=== PATIENT | female | born 1990 | race American Indian/Alaskan Native ===

== ENCOUNTER 2017-09-09 11:49 | Emergency (ER) | payer MEDICAID, OTHER ==
[2017-09-09 12:02] VITALS: BMI 25.7
[2017-09-09 12:10] VITALS: BP 122/87; PULSE 88; RESP 16; TEMP 98.1; O2SAT 99
--- NOTE | 2017-09-09 12:30 | ED PDOC ---
Arrival/HPI - General Chief Complaint: Lower Extremity Problem/Injury Time Seen by Provider: 09/09/17 12:24 Historian: Patient - History of Present Illness Narrative History of Present Illness (Text): 09/09/17 12:30 27 y/o female, no significant pmh, nkda, c/o lt. foot 4th digit toe pain around the nail about 2 days ago with no fall or trauma. Aching pain, painful to touch around the nail, no fever or chills, no chest pain or shortness of breath , no other medical or psychological complaints. Past Medical History - Provider Review Nursing Documentation Reviewed: Yes - Infectious Disease Hx of Infectious Diseases: None - Tetanus Immunization Tetanus Immunization: Up to Date - Past Medical History Past Medical History: No Previous - Pulmonary Hx Respiratory Disorders: No - Renal Hx Renal Disorder: No - Psychiatric Hx Depression: No Hx Emotional Abuse: No Hx Physical Abuse: No Hx Substance Use: No - Surgical History Hx Section: Yes - Anesthesia Hx Anesthesia Reactions: No - Suicidal Assessment Feels Threatened In Home Enviroment: No Family/Social History - Physician Review Nursing Documentation Reviewed: Yes Family/Social History: Unknown Family HX Smoking Status: Never Smoked Hx Alcohol Use: Yes Hx Substance Use: No Hx Substance Use Treatment: No Allergies/Home Meds Allergies/Adverse Reactions: Allergies No Known Allergies Allergy (Verified 02/11/13 17:27) Review of Systems - Review of Systems Constitutional: absent: Fatigue, Fevers Eyes: absent: Vision Changes ENT: absent: Hearing Changes Respiratory: absent: SOB, Cough Cardiovascular: absent: Chest Pain Gastrointestinal: absent: Abdominal Pain, Nausea, Vomiting Musculoskeletal: absent: Arthralgias, Back Pain Skin: Rash. absent: Pruritis, Skin Lesions, Laceration, Abscess, Ulcer, Cellulitis Neurological: absent: Headache, Dizziness Psychiatric: absent: Anxiety, Depression, Suicidal Ideation Physical Exam Vital Signs Reviewed: Yes Vital Signs Temp Pulse Resp BP Pulse Ox 09/09/17 12:02 98.1 F 88 16 122/87 99 Temperature: Afebrile Blood Pressure: Normal Pulse: Regular Respiratory Rate: Normal Appearance: Positive for: Well-Appearing, Non-Toxic, Comfortable Pain Distress: Mild Mental Status: Positive for: Alert and Oriented X 3 - Systems Exam Head: Present: Atraumatic, Normocephalic Pupils: Present: PERRL Respiratory/Chest: Present: Clear to Auscultation, Good Air Exchange. No: Respiratory Distress, Accessory Muscle Use Cardiovascular: Present: Regular Rate and Rhythm, Normal S1, S2. No: Murmurs Abdomen: No: Tenderness, Distention, Peritoneal Signs Upper Extremity: Present: Normal Inspection. No: Cyanosis, Edema Lower Extremity: Present: Normal Inspection, Other (Lt. foot 4th digit toe visible appear to be mild redness but there is no fluctuant abscess and no obvious paronychia noted, FROM without limitation, no bony tenderness, sensation intact, motor 5/5, +DPPT pulses, capillary refill< 2 seconds, neurovascular intact, motor 5/5). No: Edema Neurological: Present: GCS=15, CN II-XII Intact, Speech Normal Skin: Present: Warm, Dry, Normal Color. No: Rashes Psychiatric: Present: Alert, Oriented x 3, Normal Insight, Normal Concentration Medical Decision Making ED Course and Treatment: 09/09/17 12:35 -Urine hcg -Clindamycin -Urine hcg is negative. 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 Disposition/Present on Arrival - Present on Arrival Any Indicators Present on Arrival: No History of DVT/PE: No History of Uncontrolled Diabetes: No Urinary Catheter: No History of Decub. 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 Prescriptions: Clindamycin [Cleocin] 300 mg PO TID #21 cap Ibuprofen [Motrin Tab] 600 mg PO TID PRN #21 tab PRN Reason: Other Referrals: Fab Fam DPM [Staff Provider] - Follow up with primary Forms: WORK NOTE
== END 2017-09-09 13:14 | disposition home or self-care (01) ==
LOC: ED 11:49
DX: L03.032 Cellulitis of left toe (principal)

== ENCOUNTER 2018-06-28 15:19 | Emergency (ER) | payer OTHER ==
[2018-06-28 15:20] VITALS: BMI 25.7
[2018-06-28 15:29] VITALS: BP 112/70; PULSE 72; RESP 18; TEMP 98.2; O2SAT 99
--- NOTE | 2018-06-28 15:33 | ED PDOC ---
Arrival/HPI - General Chief Complaint: Back Pain Time Seen by Provider: 06/28/18 15:28 - History of Present Illness Narrative History of Present Illness (Text): 06/28/18 15:33 28 y/o female, no significant pmh, nkda, c/o lt. sided neck pain and spasm x 3 days s/p sleeping on the pillow with the neck tilted. Aching pain, no pain medication taken at home, no fever or chills, no rash, no headache, no night sweat, no rash, no dizziness, no change in vision, no other medical or psychological complaints. Past Medical History - Provider Review Nursing Documentation Reviewed: Yes - Infectious Disease Hx of Infectious Diseases: None - Tetanus Immunization Tetanus Immunization: Up to Date - Past Medical History Past Medical History: No Previous - Pulmonary Hx Respiratory Disorders: No - Renal Hx Renal Disorder: No - Psychiatric Hx Depression: No Hx Emotional Abuse: No Hx Physical Abuse: No Hx Substance Use: No - Surgical History Hx Section: Yes - Anesthesia Hx Anesthesia Reactions: No - Suicidal Assessment Feels Threatened In Home Enviroment: No Family/Social History - Physician Review Nursing Documentation Reviewed: Yes Family/Social History: Unknown Family HX Smoking Status: Never Smoked Hx Alcohol Use: Yes Hx Substance Use: No Hx Substance Use Treatment: No Allergies/Home Meds Allergies/Adverse Reactions: Allergies No Known Allergies Allergy (Verified 02/11/13 17:27) Review of Systems - Review of Systems Constitutional: absent: Fatigue, Fevers Eyes: absent: Vision Changes ENT: absent: Hearing Changes Respiratory: absent: SOB, Cough Cardiovascular: absent: Chest Pain Gastrointestinal: absent: Abdominal Pain, Nausea, Vomiting Musculoskeletal: Myalgias. absent: Arthralgias Skin: absent: Rash, Pruritis Neurological: absent: Headache, Dizziness Psychiatric: absent: Anxiety, Depression, Suicidal Ideation Physical Exam Vital Signs Reviewed: Yes Vital Signs Temp Pulse Resp BP Pulse Ox 06/28/18 15:26 98.2 F 72 18 112/70 99 Temperature: Afebrile Blood Pressure: Normal Pulse: Regular Respiratory Rate: Normal Appearance: Positive for: Well-Appearing, Non-Toxic, Comfortable Pain Distress: Moderate Mental Status: Positive for: Alert and Oriented X 3 - Systems Exam Head: Present: Atraumatic, Normocephalic Pupils: Present: PERRL Extroacular Muscles: Present: EOMI Conjunctiva: Present: Normal Ears: Present: NORMAL TM, Normal Canal. No: Erythema Mouth: Present: Moist Mucous Membranes Nose (Internal): Present: Normal Inspection, No Active Bleeding Neck: Present: Normal Range of Motion, Paraspinal Tenderness (Lt. paraspinal and trapezius muscle region with mild spasm), Trachea Midline. No: Meningeal Signs, MIDLINE TENDERNESS, Lymphadenopathy Respiratory/Chest: Present: Clear to Auscultation, Good Air Exchange. No: Respiratory Distress, Accessory Muscle Use Cardiovascular: Present: Regular Rate and Rhythm, Normal S1, S2. No: Murmurs Abdomen: No: Tenderness, Distention, Peritoneal Signs Back: Present: Normal Inspection Upper Extremity: Present: Normal Inspection. No: Cyanosis, Edema Lower Extremity: Present: Normal Inspection. No: Edema Neurological: Present: GCS=15, CN II-XII Intact, Speech Normal Skin: Present: Warm, Dry, Normal Color. No: Rashes Psychiatric: Present: Alert, Oriented x 3, Normal Insight, Normal Concentration Medical Decision Making ED Course and Treatment: 06/28/18 15:29 -Urine hcg is negative. -Pt. refused medication here and only request muscle relaxant. -Discharge home with motrin, valium, bed rest, heat compression, follow up with your own pmd and orthopedic within 2 days, return to the ER for any or worsening signs or symptoms. 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 Disposition/Present on Arrival - Present on Arrival Any Indicators Present on Arrival: No History of DVT/PE: No History of Uncontrolled Diabetes: No Urinary Catheter: No History of Decub. Ulcer: No History Surgical Site Infection Following: None - Disposition Have Diagnosis and Disposition been Completed?: Yes Diagnosis: Muscle spasm Disposition: HOME/ ROUTINE Disposition Time: 15:31 Patient Plan: Discharge Condition: GOOD Additional Instructions: Discharge home with motrin, valium, bed rest, heat compression, follow up with your own pmd and orthopedic within 2 days, return to the ER for any or worsening signs or symptoms. Prescriptions: diaZEpam [Valium] 5 mg PO QID PRN #15 tab PRN Reason: Other Ibuprofen [Motrin Tab] 600 mg PO QID PRN #30 tab PRN Reason: Other Referrals: Keon Reyes MD [Staff Provider] - Follow up with primary Forms: [employer] (Croatian), WORK NOTE
== END 2018-06-28 15:36 | disposition home or self-care (01) ==
LOC: ED 15:19
DX: M62.838 Other muscle spasm (principal)

== ENCOUNTER 2018-07-24 16:58 | Emergency (ER) | payer OTHER ==
[2018-07-24 16:58] VITALS: BMI 25.7
[2018-07-24 17:26] VITALS: BP 119/86; PULSE 78; RESP 18; TEMP 98.4; O2SAT 98
--- NOTE | 2018-07-24 18:00 | ED PDOC ---
Arrival/HPI - General Chief Complaint: Upper Extremity Problem/Injury Time Seen by Provider: 07/24/18 16:59 Historian: Patient - History of Present Illness Narrative History of Present Illness (Text): 07/25/18 00:14 28 y/o female with no significant PMH presents to the ED c/o left sided neck and arm pain x 1 month that worsened over the last 2 weeks. States the pain begins on the left side of neck and shoots down her left arm, causing intermittent numbness and tingling to the left fingertips. Pt was seen here approx 1.5 weeks ago and prescribed ibuprofen and valium, that she states makes her too sleepy although it helped relieve her symptoms. Pt does heavy lifting at work on a regular basis, states the pain is worse on days that require more strenuous activity. Pain is relieved with abduction and leaning against the left deltoid. Last dose of ibuprofen yesterday. Denies trauma/injury, fever, chills, weakness, chest pain, SOB, dizziness, vision changes, nausea, vomiting, or any other associated symptoms. Past Medical History - Provider Review Nursing Documentation Reviewed: Yes - Infectious Disease Hx of Infectious Diseases: None - Tetanus Immunization Tetanus Immunization: Up to Date - Past Medical History Past Medical History: No Previous - Pulmonary Hx Respiratory Disorders: No - Renal Hx Renal Disorder: No - Psychiatric Hx Depression: No Hx Emotional Abuse: No Hx Physical Abuse: No Hx Substance Use: No - Surgical History Hx Section: Yes - Anesthesia Hx Anesthesia: Yes Hx Anesthesia Reactions: No Hx Malignant Hyperthermia: No - Suicidal Assessment Feels Threatened In Home Enviroment: No Family/Social History - Physician Review Nursing Documentation Reviewed: Yes Family/Social History: No Known Family HX Smoking Status: Never Smoked Hx Alcohol Use: Yes Hx Substance Use: No Hx Substance Use Treatment: No Allergies/Home Meds Allergies/Adverse Reactions: Allergies No Known Allergies Allergy (Verified 06/28/18 15:31) Review of Systems - Review of Systems Constitutional: Normal. absent: Fevers Eyes: Normal. absent: Vision Changes ENT: Normal. absent: Sore Throat, Sinus Congestion Respiratory: Normal. absent: SOB, Cough Cardiovascular: Normal. absent: Chest Pain, Palpitations, Syncope Gastrointestinal: Normal. absent: Abdominal Pain, Nausea, Vomiting Genitourinary Female: Normal. absent: Dysuria, Frequency Musculoskeletal: Neck Pain (left paraspinal ), Other (left shoulder and arm pain) Skin: Normal. absent: Rash Neurological: Normal. absent: Headache, Dizziness Physical Exam Vital Signs Reviewed: Yes Vital Signs Temp Pulse Resp BP Pulse Ox 07/24/18 17:06 98.4 F 78 18 119/86 98 Temperature: Afebrile Blood Pressure: Normal Pulse: Regular Respiratory Rate: Normal Appearance: Positive for: Well-Appearing, Non-Toxic, Comfortable Pain Distress: None Mental Status: Positive for: Alert and Oriented X 3 - Systems Exam Head: Present: Atraumatic, Normocephalic Pupils: Present: PERRL Extroacular Muscles: Present: EOMI Conjunctiva: Present: Normal Mouth: Present: Moist Mucous Membranes Neck: Present: Normal Range of Motion, Paraspinal Tenderness (left with tenderness and spasm). No: Meningeal Signs, MIDLINE TENDERNESS Respiratory/Chest: Present: Clear to Auscultation, Good Air Exchange. No: Respiratory Distress, Accessory Muscle Use Cardiovascular: Present: Regular Rate and Rhythm, Normal S1, S2, Peripheal Pulses Present Back: Present: Normal Inspection. No: CVA Tenderness, Midline Tenderness, Pa raspinal Tenderness Upper Extremity: Present: Normal Inspection, Normal ROM, NORMAL PULSES, Neurovascularly Intact, Capillary Refill < 2s. No: Cyanosis, Edema, Tenderness, Swelling, Temperature Abnormalties Lower Extremity: Present: Normal ROM Neurological: Present: GCS=15, CN II-XII Intact, Speech Normal, Motor Func Gross ly Intact, Normal Sensory Function, Gait Normal Skin: Present: Warm, Dry, Normal Color. No: Rashes Psychiatric: Present: Alert, Oriented x 3, Normal Insight, Normal Concentration, Normal Affect, Normal Mood Medical Decision Making ED Course and Treatment: 07/24/18 17:57 Initial Plan: * POC urine preg * Cervical Spine XR * Left Shoulder XR * Toradol * Flexeril POC preg negative Xrays negative for acute pathology but shows cervical spine straightening as read by me, pending official read. Patient reports improvement in symptoms with medication. Symptoms are most likely secondary to radiculopathy from cervical muscular spasm or degenerative change in cervical spine. Advised orthopedic, neurologic, and PMD followup. Diagnostic testing results and plan of care discussed with patient. Strict instructions given regarding prescription use, importance of followup, and signs/symptoms to return to ER including worsening pain, chest pain, SOB, fever, weakness, or any other new/worsening symptoms. Pt verbalized understanding of discussion. Patient is A&Ox3, ambulating with steady gait, with vital signs stable for discharge. - RAD Interpretation Radiology Orders: 07/24/18 17:18 CERVICAL SPINE >18YR W/OBLIQUE [RAD] Stat SHOULDER LEFT [RAD] Stat Fruit Culler: Radiologist - Medication Orders Current Medication Orders: Discontinued Medications Cyclobenzaprine HCl (Flexeril) 5 mg PO STAT STA Stop: 07/24/18 17:20 Ketorolac Tromethamine (Toradol) 60 mg IM STAT STA Stop: 07/24/18 17:20 Disposition/Present on Arrival - Present on Arrival Any Indicators Present on Arrival: No History of DVT/PE: No History of Uncontrolled Diabetes: No Urinary Catheter: No History of Decub. Ulcer: No History Surgical Site Infection Following: None - Disposition Have Diagnosis and Disposition been Completed?: No Diagnosis: Muscle spasm, Radiculopathy Disposition: HOME/ ROUTINE Disposition Time: 18:45 Patient Plan: Discharge Condition: IMPROVED Discharge Instructions (ExitCare): Muscle Spasms (DC), Radiculopathy (DC) Additional Instructions: Flexeril nightly Ibuprofen every 6 hours as needed with food Warm compresses left neck nightly Followup with orthopedic within 2 days Followup with neurology within 2 days Followup with primary doctor within 2 days Return to ER with any new/worsening symptoms Prescriptions: Cyclobenzaprine [Flexeril] 10 mg PO HS #7 tab Referrals: Neville Metcalf MD [Staff Provider] - Follow up with primary Kwame Camejo DO [Staff Provider] - Follow up with primary Forms: [employer] (E[place]an), WORK NOTE
--- NOTE | 2018-07-25 08:36 | RAD ---
Date of service: 07/24/2018 PROCEDURE: Radiographs of the Left Shoulder HISTORY: left shoulder pain, radiculopathy COMPARISON: No prior. TECHNIQUE: 3 views obtained. FINDINGS: BONES: No acute fracture or destructive bony lesion identified. JOINTS: Normal. Glenohumeral and acromioclavicular joints preserved. No osteoarthritis. SOFT TISSUES: Normal. OTHER FINDINGS: None. IMPRESSION: Unremarkable radiographs of the left shoulder.
--- NOTE | 2018-07-25 08:38 | RAD ---
Date of service: 07/24/2018 PROCEDURE: Cervical Spine Radiographs. HISTORY: Pain. COMPARISON: None available. TECHNIQUE: 3 views obtained. FINDINGS: BONES: Straightened cervical curvature without fracture or spondylolisthesis identified. Mild C5-6 spondylosis noted anteriorly, relatively prominent at C6-7 anteriorly. No destructive bony lesion appreciable grossly. C1-2 articulation appears unremarkable as well as the odontoid process. No significant neural foraminal stenosis appreciated on oblique imaging bilaterally though C7-T1 neural foramina are limited in angulation and evaluation as result. DISC SPACES: Degenerative disc disease seen at C5-6 and C6-7. SOFT TISSUES: Normal. No prevertebral soft tissue swelling. OTHER FINDINGS: None. IMPRESSION: Degenerative disease is mild at C5-6 and moderate C6-7. No definitive neural foraminal stenosis bilaterally, though C7-T1 is somewhat limited evaluation bilaterally. Straightened cervical curvature.
== END 2018-07-24 19:04 | disposition home or self-care (01) ==
LOC: ED 16:58
DX: M62.838 Other muscle spasm (principal); M54.10 Radiculopathy, site unspecified
CPT/HCPCS: 72050; 73030; 81025; 96372; 99282; J1885

== ENCOUNTER 2018-08-11 15:46 | Outpatient (CLI) | payer OTHER | END 2018-08-11 15:47 | disposition home or self-care (01) | LOC: RAD 15:46 ==